=== PATIENT | female | born 1960 ===

== ENCOUNTER 2018-10-12 07:23 | Emergency (ER) | payer OTHER ==
[~2018-10-12] VITALS: Ht 162.6 cm; Wt 60.3 kg
[2018-10-12] MEDS ORDERED: XANAX2 MG (08:25)
[2018-10-12] MEDS ORDERED: HYOSCYAMINE PO (08:26)
== END 2018-10-12 19:20 | disposition home or self-care (01) ==
LOC: ER 07:23
DX: K62.5 Hemorrhage of anus and rectum (principal)

== ENCOUNTER 2019-05-15 06:30 | Day surgery (SDC) | payer OTHER ==
[~2019-05-15 06:30] MED LIST: HYOSCYAMINE PO; XANAX2 MG
== END 2019-05-15 16:20 | disposition home or self-care (01) ==
LOC: AMB-ENDOS 06:30
DX: C20 Malignant neoplasm of rectum (principal); C21.1 Malignant neoplasm of anal canal; D12.3 Benign neoplasm of transverse colon